=== PATIENT | female | born 1955 | race Caucasian/White ===

== ENCOUNTER 2020-06-06 10:16 | Inpatient (IN) | payer MEDICARE ==
[~2020-06-06] VITALS: Ht 165.1 cm; Wt 88.5 kg
--- NOTE | 2020-06-06 10:30 | NUR ---
BIB [facility] HOME C/O SOB. O2 SAT 85% ON ROOM AIR. PLACED ON NC AT 4l/MIN. SATTING NOW AT 97%. IV ACCESS STARTED. BLOOD DRAW DONE. SENT TO LAB. SEEN BY
--- NOTE | 2020-06-06 10:52 | NUR ---
PIO BEE [phone] CALLED FOR PT UPDATE.
[2020-06-06 10:54] LABS: BASOPHILS # (AUTO) 0.1 /CMM (0.0-0.2); BASOPHILS % (AUTO) 0.6 % (0.0-2.0); EOSINOPHILS % (AUTO) 0.5 % (0.0-6.0); HEMATOCRIT 39 % (33-45); HEMOGLOBIN 13.1 g/dL (11.5-14.8); LYMPHOCYTES % (AUTO) 33.3 % (20.0-44.0); MEAN CORPUSCULAR HGB CONC 34 g/dl (31.0-36.0); MEAN CORPUSCULAR VOLUME 98 fL (82-100); MONOCYTES # (AUTO) 0.7 /CMM (0.1-1.30); MONOCYTES % (AUTO) 7.4 % (2.0-12.0); NEUTROPHILS # (AUTO) 5.2 /CMM (1.8-8.9); NEUTROPHILS % (AUTO) 58.2 % (43.0-81.0); PLATELET COUNT (AUTO) 237 /CMM (150-450); WHITE BLOOD COUNT (AUTO) 8.9 K/uL (4.3-11.0)
[2020-06-06 11:09] LABS: ALANINE AMINOTRANSFERASE 40 U/L (12-78); ALBUMIN 3.1 g/dL (3.4-5.0); ALKALINE PHOSPHATASE 69 U/L (46-116); ASPARTATE AMINOTRANSFERASE 20 U/L (15-37); BILIRUBIN,DIRECT 0.1 mg/dL (0.0-0.2); BILIRUBIN,TOTAL 0.1 mg/dL (0.2-1.0); CALCIUM, SERUM 7.8 mg/dL (8.5-10.1); CARBON DIOXIDE 29 mmol/L (21-32); CHLORIDE 105 mmol/L (98-107); CREATININE 0.6 mg/dL (0.6-1.3); GLUCOSE 111 mg/dL (74-106); SODIUM SERUM 141 mmol/L (136-145); TOTAL PROTEIN, SERUM 6.6 g/dL (6.4-8.2)
[2020-06-06 11:20] LABS: UREA NITROGEN, BLOOD 19 mg/dL (7-18)
--- NOTE | 2020-06-06 11:24 | NUR ---
CALLED [facility], PAGED DR. BRADLEY
[2020-06-06] MEDS ORDERED: DEXAMETHASONE SOD PHOSPHATE 10 MG/ML VIAL ONE (11:27)
[2020-06-06] MEDS ORDERED: BUPR-51 PO (11:30)
[2020-06-06] MEDS ORDERED: AZIT500T4 PO (11:30)
[2020-06-06] MEDS ORDERED: ZINC1CAP2 PO (11:30)
[2020-06-06] MEDS ORDERED: CHOL200010 PO (11:30)
[2020-06-06] MEDS ORDERED: DEXAMETHASONE SOD PHOSPHATE 10 MG/ML VIAL IV ONE (11:30)
[2020-06-06] MEDS ORDERED: ALPR2TAB7 PO (11:30)
[2020-06-06] MEDS ORDERED: CARI350T27 PO (11:30)
[2020-06-06] MEDS ORDERED: ALBU8.5H8 IH (11:30)
[2020-06-06] MEDS ORDERED: PRED10TA23 PO (11:30)
[2020-06-06] MEDS ORDERED: LOSA50TA39 PO (11:30)
--- NOTE | 2020-06-06 11:43 | NUR ---
covid pcr and antigen collected sent to lab
[2020-06-06] MEDS ORDERED: ONDANSETRON HCL/PF 4 MG/2 ML VIAL IVP PRN (12:00)
[2020-06-06] MEDS ORDERED: ALBUTEROL SULFATE INH 18 GM HFA.AER.AD IH PRN (12:00)
[2020-06-06] MEDS ORDERED: ACETAMINOPHEN 325 MG TABLET PO PRN (12:00)
[2020-06-06] MEDS ORDERED: ENOXAPARIN SODIUM 40 MG/0.4 ML DISP.SYRIN SQ ONE (12:28)
[2020-06-06] MEDS ORDERED: CEFTRIAXONE 1GM BAG (ER ONLY) 50 ML IV ONE (12:28)
[2020-06-06] MEDS: CEFTRIAXONE 1 G in IV D5W 50 ML IV SCH (12:31)
[2020-06-06] MEDS: ENOXAPARIN SODIUM 40 MG/0.4 ML DISP.SYRIN SQ SCH (12:31)
--- NOTE | 2020-06-06 13:30 | NUR ---
pt provided with lunch but only ate 40%, states that she doesnt have much of an appetite, requested for more juice which was provided to the ot,
--- NOTE | 2020-06-06 13:44 | NUR ---
urine collected sent to lab
[2020-06-06 13:52] LABS: CREATINE KINASE, TOTAL 40 U/L (26-192); FERRITIN 323 ng/mL (8-388)
[2020-06-06] MEDS ORDERED: IV D5/ 0.9% NACL 1,000 ML IV ONE (14:00)
[2020-06-06 14:03] LABS: BILIRUBIN,URINE Negative (NEGATIVE); COLOR,URINE LIGHT YELLOW (YELLOW); LEUKOCYTE ESTERASE ,URINE Negative (NEGATIVE); NITRITE, URINE Negative (NEGATIVE); PROTEIN,URINE Negative (NEGATIVE); UGLUCOSE Negative (NEGATIVE); UROBILINOGEN,URINE 0.2 EU/dL (0.2)
[2020-06-06 14:05] LABS: C-REACTIVE PROTEIN < 0.2 mg/dL (0.0-0.9)
[2020-06-06 14:19] LABS: BACTERIA,URINE Few /HPF (None Seen); WBC,URINE 0-2 /HPF (0-3)
[2020-06-06] MEDS: ALPRAZOLAM 0.5 MG TABLET PO PRN (18:30)
--- NOTE | 2020-06-06 18:30 | NUR ---
pt complaining of anxiety. xanax 1mg administered.
--- NOTE | 2020-06-06 20:51 | NUR ---
PATIENT IS ABLE TO STAND AMBULATE TO THE COMMODE WITH ASSISTANCE.
--- NOTE | 2020-06-06 23:20 | NUR ---
PATIENT AMBULATED TO THE COMMODE
[2020-06-07 03:29] LABS: BASOPHILS % (AUTO) 0.4 % (0.0-2.0); HEMATOCRIT 39 % (33-45); HEMOGLOBIN 12.9 g/dL (11.5-14.8); LYMPHOCYTES # (AUTO) 2.1 /CMM (0.8-4.8); LYMPHOCYTES % (AUTO) 26.5 % (20.0-44.0); MEAN CORPUSCULAR HGB CONC 34 g/dl (31.0-36.0); MEAN CORPUSCULAR VOLUME 97 fL (82-100); MONOCYTES % (AUTO) 12.4 % (2.0-12.0); NEUTROPHILS # (AUTO) 4.8 /CMM (1.8-8.9); NEUTROPHILS % (AUTO) 60.7 % (43.0-81.0); PLATELET COUNT (AUTO) 236 /CMM (150-450); RED BLOOD CELL COUNT(AUTO) 3.98 MIL/uL (4.0-5.2); WHITE BLOOD COUNT (AUTO) 7.9 K/uL (4.3-11.0)
[2020-06-07 03:46] LABS: ALBUMIN 3.3 g/dL (3.4-5.0); BILIRUBIN,TOTAL 0.3 mg/dL (0.2-1.0); CALCIUM, SERUM 8.3 mg/dL (8.5-10.1); CREATININE 0.6 mg/dL (0.6-1.3); MAGNESIUM 1.8 mg/dL (1.8-2.4); PHOSPHORUS 3.2 mg/dL (2.5-4.9); POTASSIUM 3.6 mmol/L (3.5-5.1)
[2020-06-07 03:53] LABS: THYROID STIMULATING HORMONE 0.752 uIU/mL (0.358-3.74)
--- NOTE | 2020-06-07 07:35 | NUR ---
REPORT GIVEN TO JUAN PABLO GRANT FOR ANEESH.
[2020-06-07] MEDS ORDERED: LOSARTAN POTASSIUM 25 MG TABLET ONE (08:12)
[2020-06-07] MEDS ORDERED: DEXAMETHASONE SOD PHOSPHATE 10 MG/ML VIAL ONE (08:12)
[2020-06-07] MEDS ORDERED: ENOXAPARIN SODIUM 40 MG/0.4 ML DISP.SYRIN SQ ONE (08:12)
[2020-06-07] MEDS: BUPROPION XL 150 MG TAB.ER.24 PO SCH (08:16)
[2020-06-07] MEDS: CHOLECALCIFEROL 1,000 UNIT TABLET (VIT D3) PO SCH (08:16)
[2020-06-07] MEDS: ZINC SULFATE 220 MG CAPSULE PO SCH (08:16)
[2020-06-07] MEDS: LOSARTAN POTASSIUM 50 MG TABLET PO SCH (08:20)
[2020-06-07] MEDS: ENOXAPARIN SODIUM 40 MG/0.4 ML DISP.SYRIN SQ SCH (08:31)
[2020-06-07] MEDS: DEXAMETHASONE SOD PHOSPHATE 10 MG/ML VIAL IV SCH (08:31)
[2020-06-07] MEDS ORDERED: ALPRAZOLAM 0.5 MG TABLET ONE (08:51)
[2020-06-07] MEDS: ALPRAZOLAM 0.5 MG TABLET PO PRN (08:52)
[2020-06-07] MEDS ORDERED: AZITHROMYCIN 250 MG TABLET PO SCH (12:00)
--- NOTE | 2020-06-07 12:00 | NUR ---
PATIENT A/OX4, BREATHING EVEN AND UNLABORED, ON 4LPM VIA NC WITH SPO2 OF 98%. NO DISTRESS NOTED. NEEDS ATTENDED.
[2020-06-07] MEDS: CEFTRIAXONE 1 G in IV D5W 50 ML IV SCH (13:33)
--- NOTE | 2020-06-07 19:16 | NUR ---
ASSUMED CARE. REPORT RECEIVED FROM AM SHIFT JUANITA ALMEIDA. PT AAOX4 NO ACUTE DISTRESS NOTED, RESP EVEN AND UNLABORED. PT DENIES PAIN OR DISCOMFORT AT THIS TIME. PT REMAINS ON CARDIAC MONITORING SHOWS SINUS TACH 109, CONTINUOUS POX WITH 02 SAT 95%ON RA. WILL CONTINUE TO MONITOR PT CLOSELY. CALL LIGHT WITHIN REACH.
[2020-06-07] MEDS ORDERED: LORAZEPAM 0.5 MG TABLET ONE (20:22)
[2020-06-07] MEDS: LORAZEPAM 1 MG TABLET PO PRN (20:33)
--- NOTE | 2020-06-08 00:59 | NUR ---
PT ASLEEP, NO ACUTE DISTRESS NOTED, RESP EVEN AND UNLABORED. NO PAIN OR DISCOMFORT NOTED AT THIS TIME. CALL LIGHT WITHIN REACH. WILL CONTINUE TO MONITOR PT CLOSELY.
--- NOTE | 2020-06-08 03:22 | NUR ---
PT C/O L SIDED CP 09/26. [facility]- MADE AWARE WITH ORDERS RECEIVED. PT STATES "IT MAYBE BECAUSE I HAVEN'T HAD A CIGARETTE OR IT'S BECAUSE I TAKE XANAX 2MG AT HOME". PT REMAINS ON CARDIAC MONITORING, CONTINUOUS POX.
[2020-06-08] MEDS ORDERED: CLONIDINE HCL 0.1 MG TABLET PO PRN ×2 (03:30→10:00)
--- NOTE | 2020-06-08 03:40 | NUR ---
TROPONIN DRAWN BY HOPPER FEEDER.
[2020-06-08] MEDS ORDERED: LORAZEPAM 0.5 MG TABLET ONE (03:47)
[2020-06-08] MEDS: LORAZEPAM 1 MG TABLET PO PRN (03:52)
--- NOTE | 2020-06-08 03:52 | NUR ---
PT MEDICATED WITH ATIVAN 0.5MG PO PRN ORDERED.
[2020-06-08 04:11] LABS: BASOPHILS % (AUTO) 0.3 % (0.0-2.0); EOSINOPHILS % (AUTO) 0.2 % (0.0-6.0); HEMATOCRIT 39 % (33-45); HEMOGLOBIN 12.9 g/dL (11.5-14.8); LYMPHOCYTES # (AUTO) 4.3 /CMM (0.8-4.8); LYMPHOCYTES % (AUTO) 50.6 % (20.0-44.0); MEAN CORPUSCULAR HGB CONC 33 g/dl (31.0-36.0); MEAN CORPUSCULAR VOLUME 98 fL (82-100); MONOCYTES # (AUTO) 1.1 /CMM (0.1-1.30); MONOCYTES % (AUTO) 12.5 % (2.0-12.0); NEUTROPHILS # (AUTO) 3.1 /CMM (1.8-8.9); NEUTROPHILS % (AUTO) 36.4 % (43.0-81.0); PLATELET COUNT (AUTO) 235 /CMM (150-450); RED BLOOD CELL COUNT(AUTO) 3.96 MIL/uL (4.0-5.2); WHITE BLOOD COUNT (AUTO) 8.6 K/uL (4.3-11.0)
[2020-06-08 04:21] LABS: CALCIUM, SERUM 8.3 mg/dL (8.5-10.1); CREATININE 0.5 mg/dL (0.6-1.3)
--- NOTE | 2020-06-08 07:31 | NUR ---
REPORT GIVEN TO AM SHIFT JUANITA ALMEIDA.
--- NOTE | 2020-06-08 08:00 | NUR ---
ON ROOM AIR WITH 88% SPO2 AT REST.
--- NOTE | 2020-06-08 08:30 | NUR ---
PATIENT ON O2 AT 3LPM VIA NC WITH SPO2 OF 94-96%. NEEDS ATTENDED. NO DISTRESS NOTED.
[2020-06-08] MEDS ORDERED: ENOXAPARIN SODIUM 40 MG/0.4 ML DISP.SYRIN SQ ONE (09:31)
[2020-06-08] MEDS ORDERED: CHOLECALCIFEROL 1,000 UNIT TABLET (VIT D3) ONE (09:31)
[2020-06-08] MEDS ORDERED: ZINC SULFATE 220 MG CAPSULE ONE (09:31)
[2020-06-08] MEDS ORDERED: LOSARTAN POTASSIUM 50 MG TABLET ONE (09:31)
[2020-06-08] MEDS ORDERED: DEXAMETHASONE SOD PHOSPHATE 10 MG/ML VIAL ONE (09:31)
[2020-06-08] MEDS ORDERED: BUPROPION XL 150 MG TAB.ER.24 PO ONE (09:32)
[2020-06-08] MEDS: DEXAMETHASONE SOD PHOSPHATE 10 MG/ML VIAL IV SCH (09:32)
[2020-06-08] MEDS: CHOLECALCIFEROL 1,000 UNIT TABLET (VIT D3) PO SCH (09:33)
[2020-06-08] MEDS: ZINC SULFATE 220 MG CAPSULE PO SCH (09:33)
[2020-06-08] MEDS: BUPROPION XL 150 MG TAB.ER.24 PO SCH (09:33)
[2020-06-08] MEDS: LOSARTAN POTASSIUM 50 MG TABLET PO SCH (09:42)
[2020-06-08] MEDS: ENOXAPARIN SODIUM 40 MG/0.4 ML DISP.SYRIN SQ SCH (09:42)
[2020-06-08] MEDS ORDERED: ALPRAZOLAM 0.5 MG TABLET ONE (09:44)
[2020-06-08] MEDS: ALPRAZOLAM 0.5 MG TABLET PO PRN (09:49)
[2020-06-08] MEDS ORDERED: POTASSIUM CHLORIDE 20 MEQ TAB.PRT.SR PO ONE ×2 (10:30→10:53)
--- NOTE | 2020-06-08 12:00 | NUR ---
PATIENT'S NEEDS ATTENDED, KEPT COMFORTABLE. PATIENT WILL BE DISCHARGED TODAY, PENDING OXYGEN DELIVERY.
[2020-06-08] MEDS: CEFTRIAXONE 1 G in IV D5W 50 ML IV SCH (13:13)
--- NOTE | 2020-06-08 18:35 | NUR ---
PATIENT ON ROOM AIR WITH SPO2 OF 94% AT REST. NO DISTRESS NOTED. WILL KEEP ON 2LPM VIA NC ON HER WAY FOR SUPPLEMENTAL OXYGEN DUE TO AMBULATION/ACTIVITY. PER DAUGHTER, OXYGEN HAS BEEN DELIVERED AT HOME. WILL BRING THE PORTABLE O2 TANK. PATIENT A/OX4, BREATHING EVEN AND UNLABORED, NO SOB NOTED. NEEDS ATTENDED. DISCHARGE INSTRUCTIONS PROVIDED. IV removed. Catheter intact and site benign. Pressure and 4x4 applied to site. No bleeding noted. Patient discharged to home in stable condition. Written and verbal after care instructions given. Patient verbalizes understanding of instruction.Waiting for daughter to pick her up.
[2020-06-08 18:45] VITALS: BP 149/81
== END 2020-06-08 18:46 | disposition home health service (06) | DRG 193 ==
LOC: ER 10:18 → TRANSITION 11:27
PROVIDERS: ADMIT Registered Nurse; ATTEND Internal Medicine
DX: J12.9 Viral pneumonia, unspecified (principal); J96.01 Acute respiratory failure with hypoxia; E87.2 Acidosis; E66.2 Morbid (severe) obesity with alveolar hypoventilation; G89.29 Other chronic pain; F32.9 Major depressive disorder, single episode, unspecified; F41.9 Anxiety disorder, unspecified; Z68.32 Body mass index [BMI] 32.0-32.9, adult; Z79.51 Long term (current) use of inhaled steroids; Z79.899 Other long term (current) drug therapy; Z20.822 Contact with and (suspected) exposure to COVID-19; Z79.01 Long term (current) use of anticoagulants; E87.6 Hypokalemia
CPT/HCPCS: 36415; 71045-TC; 80048-TC; 80053-TC; 80061-TC; 80076-TC; 81001; 82550-TC; 82728-TC; 83605-TC; 83615-TC; 83735-TC; 84100-TC; 84443-TC; 84484-TC; 85025-TC; 85378-TC; 85730-TC; 86140-TC; 87040-TC; 87081-TC; 87086-TC; 93307-TC; G0378; J0696; J1100; J1650; J7042; J7060; U0003